=== PATIENT | male | born 1940 | race Caucasian/White ===

== ENCOUNTER 2018-12-17 12:55 | Emergency (ER) | payer MEDICARE, OTHER ==
[~2018-12-17] VITALS: Ht 182.9 cm; Wt 104.0 kg
[2018-12-17] MEDS ORDERED: CEPH500C5 PO (13:47)
[2018-12-17 13:48] VITALS: BP 138/88
== END 2018-12-17 13:54 | disposition home or self-care (01) ==
LOC: ER 12:56
DX: L03.116 Cellulitis of left lower limb (principal); Z79.2 Long term (current) use of antibiotics
CPT/HCPCS: 99283; 99284